=== PATIENT | female | born 1960 | race African-American/Black ===

== ENCOUNTER 2020-09-23 07:01 | Emergency (ER) | payer OTHER ==
[~2020-09-23] VITALS: Ht 170.2 cm; Wt 79.0 kg
[2020-09-23 09:07] VITALS: BP 185/97
== END 2020-09-23 09:09 | disposition home or self-care (01) ==
LOC: ER 07:35
DX: J45.909 Unspecified asthma, uncomplicated (principal); Z85.528 Personal history of other malignant neoplasm of kidney; Z98.890 Other specified postprocedural states
CPT/HCPCS: 71045; 93005; 99283

== ENCOUNTER 2021-07-12 21:14 | Emergency (ER) | payer OTHER ==
[~2021-07-12] VITALS: Ht 172.7 cm; Wt 75.0 kg
[2021-07-12] MEDS ORDERED: IPRATROPIUM BROMIDE (0.02%) 0.5MG/2.5ML NEB HHN STA (22:02)
[2021-07-12] MEDS ORDERED: METHYLPREDNISOLONE SOD SUCC 125 MG/2 ML VIAL IV STA (22:02)
[2021-07-12 23:05] LABS: BASOPHILS % 0.9 % (0.0-2.0); EOSINOPHILS % 8.8 % (0.0-5.0); HEMATOCRIT. 39.6 % (36.0-48.0); HEMOGLOBIN. 13.1 g/dL (12.0-16.0); LYMPHOCYTES % 19.8 % (20.0-50.0); MEAN CORPUSCULAR HEMOGLOBIN 27.9 pg (28.0-32.0); MEAN CORPUSCULAR VOLUME 84.4 fL (81.0-99.0); MEAN PLATELET VOLUME 9.1 fl (7.4-10.4); MONOCYTES % 7.8 % (2.0-8.0); NEUTROPHILS % 62.7 % (40.0-76.0); PLATELET 264 x1000/uL (130-400); RED BLOOD CELL COUNT 4.69 mill/uL (4.2-5.4); RED CELL DISTRIBUTION WIDTH 14.2 % (11.6-14.6)
[2021-07-12 23:13] LABS: CHLORIDE 109 mEq/L (98-107)
[2021-07-12] MEDS: ALBUTEROL (0.083%) 2.5MG/3ML NEB HHN SCH ×2 (23:26→23:55)
[2021-07-13] MEDS ORDERED: ALBU05 NEB (00:31)
[2021-07-13] MEDS ORDERED: ALBU6.7H15 INH (00:31)
[2021-07-13] MEDS ORDERED: PRED10TA MT (00:31)
[2021-07-13 00:45] VITALS: BP 123/85
== END 2021-07-13 00:45 | disposition home or self-care (01) ==
LOC: ER 21:14
DX: J45.901 Unspecified asthma with (acute) exacerbation (principal); I10 Essential (primary) hypertension
CPT/HCPCS: 36415; 71045; 80053; 85025; 85610; 94640; 96374; 99284; J2930; Z7610

== ENCOUNTER 2021-08-09 20:20 | Inpatient (IN) | payer OTHER ==
[~2021-08-09] VITALS: Ht 167.6 cm; Wt 65.8 kg
[~2021-08-09 20:20] MED LIST: ALBU05 NEB; ALBU6.7H15 INH; PRED10TA MT
[2021-08-09] MEDS ORDERED: METHYLPREDNISOLONE SOD SUCC 125 MG/2 ML VIAL IV STA (20:59)
[2021-08-09] MEDS ORDERED: IPRATROPIUM BROMIDE (0.02%) 0.5MG/2.5ML NEB HHN STA (20:59)
[2021-08-09] MEDS ORDERED: ALBUTEROL (0.083%) 2.5MG/3ML NEB HHN STA (20:59)
[2021-08-09] MEDS ORDERED: ASPIRIN 81MG TABLET PO ONE (21:00)
[2021-08-09 21:52] LABS: EOSINOPHILS % 5.5 % (0.0-5.0); HEMATOCRIT. 39.9 % (36.0-48.0); HEMOGLOBIN. 12.4 g/dL (12.0-16.0); LYMPHOCYTES % 14.7 % (20.0-50.0); MEAN CORPUSCULAR HEMOGLOBIN 26.7 pg (28.0-32.0); MEAN CORPUSCULAR VOLUME 86.1 fL (81.0-99.0); MEAN PLATELET VOLUME 9.9 fl (7.4-10.4); NEUTROPHILS % 71.8 % (40.0-76.0); PLATELET 249 x1000/uL (130-400); RED BLOOD CELL COUNT 4.64 mill/uL (4.2-5.4); RED CELL DISTRIBUTION WIDTH 14.9 % (11.6-14.6)
[2021-08-09 21:56] LABS: CHLORIDE 115 mEq/L (98-107)
[2021-08-09] MEDS ORDERED: POTASSIUM CHLORIDE 20MEQ TABLET SR PO ONE (22:45)
[2021-08-10] MEDS ORDERED: ACETAMINOPHEN 325MG TABLET PO PRN (04:30)
[2021-08-10] MEDS ORDERED: GUAIFENESIN 200MG/10ML SUGAR FREE UDC PO PRN (04:30)
[2021-08-10] MEDS: ENOXAPARIN 40MG/0.4ML SYR SUBCUT SCH (04:30)
[2021-08-10] MEDS ORDERED: IPRATROPIUM/ALBUTEROL 0.5-3(2.5)MG/3ML NEB HHN PRN (04:30)
[2021-08-10] MEDS: METHYLPREDNISOLONE SOD SUCC 125 MG/2 ML VIAL IV SCH ×2 (04:30→12:07)
[2021-08-10] MEDS ORDERED: DOCUSATE SODIUM 100MG CAPSULE PO PRN (04:30)
[2021-08-10] MEDS ORDERED: MAGNESIUM/ALUMINUM HYDROXIDE/SIMETHICONE 30ML UDC PO PRN (04:30)
[2021-08-10] MEDS ORDERED: CLONIDINE 0.1MG TABLET PO PRN (04:30)
[2021-08-10] MEDS ORDERED: HYDROCODONE/ACETAMINOPHEN 5/325MG TABLET PO PRN (04:30)
[2021-08-10] MEDS ORDERED: ONDANSETRON HCL 4MG/2ML INJ IV PRN (04:30)
[2021-08-10] MEDS ORDERED: NALOXONE HCL 0.4 MG/ML 1ML VIAL IV PRN (04:45)
[2021-08-10] MEDS ORDERED: KCL 10MEQ/50ML PREMIX 50 ML IV SCH (06:00)
[2021-08-10] MEDS: LEVOFLOXACIN 500MG PREMIX 100 ML IV SCH (06:36)
[2021-08-10] MEDS: IPRATROPIUM/ALBUTEROL 0.5-3(2.5)MG/3ML NEB HHN SCH ×3 (08:33→20:50)
[2021-08-10] MEDS: AMLODIPINE 10MG TABLET PO SCH (09:16)
[2021-08-10 16:30] VITALS: BP 138/65
[2021-08-10] MEDS ORDERED: MONT10TA21 PO (19:14)
[2021-08-10] MEDS ORDERED: AMLO2.5T2 PO (19:14)
[2021-08-10 20:00] VITALS: BP 123/69
[2021-08-11] VITALS: BP 105/78
[2021-08-11] MEDS: IPRATROPIUM/ALBUTEROL 0.5-3(2.5)MG/3ML NEB HHN SCH ×3 (00:41→14:50)
[2021-08-11] MEDS: METHYLPREDNISOLONE SOD SUCC 125 MG/2 ML VIAL IV SCH ×3 (00:55→12:02)
[2021-08-11 04:00] VITALS: BP 102/60
[2021-08-11] MEDS: ENOXAPARIN 40MG/0.4ML SYR SUBCUT SCH (04:30)
[2021-08-11] MEDS: LEVOFLOXACIN 500MG PREMIX 100 ML IV SCH (05:06)
[2021-08-11 08:00] VITALS: BP 112/50
[2021-08-11 08:47] LABS: CHLORIDE 107 mEq/L (98-107); HEMATOCRIT. 39.1 % (36.0-48.0); HEMOGLOBIN. 12.5 g/dL (12.0-16.0); MEAN CORPUSCULAR HEMOGLOBIN 27.4 pg (28.0-32.0); MEAN CORPUSCULAR VOLUME 85.8 fL (81.0-99.0); MEAN PLATELET VOLUME 10.5 fl (7.4-10.4); PLATELET 273 x1000/uL (130-400); RED BLOOD CELL COUNT 4.56 mill/uL (4.2-5.4)
[2021-08-11] MEDS: AMLODIPINE 10MG TABLET PO SCH (09:00)
[2021-08-11 12:00] VITALS: BP 118/60
[2021-08-11 15:41] VITALS: BP 124/68
[2021-08-11 16:00] VITALS: BP 124/68
[2021-08-11 22:13] LABS: PLATELET ESTIMATE NORMAL
== END 2021-08-11 17:55 | disposition home or self-care (01) | DRG 140 ==
LOC: ER 20:20 → MICUSO 08-10 → 8WST 08-10 17:07
PROVIDERS: ADMIT Hospitalist; ATTEND Hospitalist
DX: J44.1 Chronic obstructive pulmonary disease with (acute) exacerbation (principal); F17.200 Nicotine dependence, unspecified, uncomplicated; Z20.822 Contact with and (suspected) exposure to COVID-19; G80.9 Cerebral palsy, unspecified; I10 Essential (primary) hypertension; Z79.899 Other long term (current) drug therapy
CPT/HCPCS: 36415; 71045; 80053; 83880; 84484; 85025; 87426; 93005; 93970; 94640; 94644; 99285; J1650; J1956; J2930; J3480

== ENCOUNTER 2021-12-27 16:16 | Emergency (ER) | payer OTHER ==
[~2021-12-27] VITALS: Ht 157.5 cm; Wt 65.0 kg
[~2021-12-27 16:16] MED LIST changes: +AMLO2.5T2 PO; +MONT10TA21 PO
[2021-12-27] MEDS ORDERED: ALBUTEROL (0.083%) 2.5MG/3ML NEB HHN STA (16:48)
[2021-12-27] MEDS ORDERED: PREDNISONE 20MG TABLET PO STA (16:48)
[2021-12-27] MEDS ORDERED: IPRATROPIUM BROMIDE (0.02%) 0.5MG/2.5ML NEB HHN STA (16:48)
[2021-12-27 17:32] LABS: BASOPHILS % 1.2 % (0.0-2.0); EOSINOPHILS % 14.1 % (0.0-5.0); HEMATOCRIT. 41.3 % (36.0-48.0); HEMOGLOBIN. 13.3 g/dL (12.0-16.0); LYMPHOCYTES % 33.1 % (20.0-50.0); MEAN CORPUSCULAR HEMOGLOBIN 27.4 pg (28.0-32.0); MEAN CORPUSCULAR VOLUME 85.2 fL (81.0-99.0); MEAN PLATELET VOLUME 9.2 fl (7.4-10.4); MONOCYTES % 8.5 % (2.0-8.0); NEUTROPHILS % 43.1 % (40.0-76.0); PLATELET 234 x1000/uL (130-400); RED BLOOD CELL COUNT 4.84 mill/uL (4.2-5.4); RED CELL DISTRIBUTION WIDTH 15.1 % (11.6-14.6)
[2021-12-27 17:35] LABS: CHLORIDE 108 mEq/L (98-107)
[2021-12-27] MEDS ORDERED: ALBUTEROL (0.5%) 2.5MG/0.5ML NEB HHN STA (20:42)
[2021-12-27] MEDS ORDERED: ALBU05 NEB (20:52)
[2021-12-27] MEDS ORDERED: FLUT1DIS3 INH (20:52)
[2021-12-27] MEDS ORDERED: P50 PO (20:53)
[2021-12-27] MEDS ORDERED: ALBUTEROL (0.5%) 2.5MG/0.5ML NEB HHN ONE (21:17)
[2021-12-27] MEDS ORDERED: IPRATROPIUM/ALBUTEROL 0.5-3(2.5)MG/3ML NEB ONE (21:17)
[2021-12-27 23:00] VITALS: BP 145/82
== END 2021-12-27 23:18 | disposition home or self-care (01) ==
LOC: ER 16:16
DX: J44.1 Chronic obstructive pulmonary disease with (acute) exacerbation (principal); I10 Essential (primary) hypertension; G80.9 Cerebral palsy, unspecified
CPT/HCPCS: 36415; 71045; 80048; 85025; 94640; 99285; J7512; Z7610

== ENCOUNTER 2022-04-10 10:27 | Inpatient (IN) | payer OTHER ==
[~2022-04-10] VITALS: Ht 162.6 cm; Wt 59.9 kg
[~2022-04-10 10:27] MED LIST changes: +FLUT1DIS3 INH; +P50 PO
[2022-04-10] MEDS ORDERED: IPRATROPIUM BROMIDE (0.02%) 0.5MG/2.5ML NEB HHN STA (10:39)
[2022-04-10] MEDS ORDERED: ALBUTEROL (0.083%) 2.5MG/3ML NEB HHN STA (10:39)
[2022-04-10 11:10] LABS: BASOPHILS % 1.1 % (0.0-2.0); EOSINOPHILS % 11.3 % (0.0-5.0); HEMATOCRIT. 40.9 % (36.0-48.0); HEMOGLOBIN. 13.2 g/dL (12.0-16.0); LYMPHOCYTES % 40.9 % (20.0-50.0); MEAN CORPUSCULAR HEMOGLOBIN 27.2 pg (28.0-32.0); MEAN CORPUSCULAR VOLUME 84.3 fL (81.0-99.0); MONOCYTES % 8.6 % (2.0-8.0); NEUTROPHILS % 38.1 % (40.0-76.0); PLATELET 228 x1000/uL (130-400); RED BLOOD CELL COUNT 4.86 mill/uL (4.2-5.4)
[2022-04-10 11:22] LABS: CHLORIDE 108 mEq/L (98-107)
[2022-04-10] MEDS ORDERED: METHYLPREDNISOLONE SOD SUCC 125 MG/2 ML VIAL IV ONE (11:45)
[2022-04-10] MEDS ORDERED: IPRATROPIUM/ALBUTEROL 0.5-3(2.5)MG/3ML NEB HHN PRN (16:00)
[2022-04-10 16:30] VITALS: BP 143/77
[2022-04-10] MEDS ORDERED: PREDNISONE 20MG TABLET PO SCH (17:00)
[2022-04-10] MEDS ORDERED: MONTELUKAST SODIUM 10MG TABLET PO SCH (17:00)
[2022-04-10] MEDS ORDERED: *PATIENT'S OWN MEDICATION STORAGE XX SCH (17:45)
[2022-04-10 17:56] VITALS: BP 143/77
[2022-04-10] MEDS ORDERED: HYDROCODONE/ACETAMINOPHEN 5/325MG TABLET PO PRN (19:30)
[2022-04-10] MEDS ORDERED: ACETAMINOPHEN 325MG TABLET PO PRN (19:30)
[2022-04-10] MEDS ORDERED: CLONIDINE 0.2MG TABLET PO PRN (19:30)
[2022-04-10] MEDS ORDERED: ZOLPIDEM TARTRATE 5MG TABLET PO PRN (19:30)
[2022-04-10 20:00] VITALS: BP 145/70
[2022-04-10 21:01] LABS: BASOPHILS % 0.3 % (0.0-2.0); EOSINOPHILS % 0.1 % (0.0-5.0); HEMATOCRIT. 39.1 % (36.0-48.0); HEMOGLOBIN. 12.5 g/dL (12.0-16.0); LYMPHOCYTES % 10.7 % (20.0-50.0); MEAN CORPUSCULAR HEMOGLOBIN 27.1 pg (28.0-32.0); MEAN CORPUSCULAR VOLUME 85.3 fL (81.0-99.0); MEAN PLATELET VOLUME 10.2 fl (7.4-10.4); MONOCYTES % 0.9 % (2.0-8.0); PLATELET 229 x1000/uL (130-400); RED BLOOD CELL COUNT 4.59 mill/uL (4.2-5.4); RED CELL DISTRIBUTION WIDTH 14.1 % (11.6-14.6)
[2022-04-10 21:31] LABS: CHLORIDE 107 mEq/L (98-107)
[2022-04-10] MEDS: IPRATROPIUM/ALBUTEROL 0.5-3(2.5)MG/3ML NEB HHN SCH (21:58)
[2022-04-10] MEDS: METHYLPREDNISOLONE SOD SUCC 125 MG/2 ML VIAL IV SCH (23:43)
[2022-04-11] VITALS: BP 140/65
[2022-04-11 04:00] VITALS: BP 115/71
[2022-04-11] MEDS: METHYLPREDNISOLONE SOD SUCC 125 MG/2 ML VIAL IV SCH (05:19)
[2022-04-11 08:00] VITALS: BP 155/73
[2022-04-11] MEDS: IPRATROPIUM/ALBUTEROL 0.5-3(2.5)MG/3ML NEB HHN SCH ×2 (08:54→13:52)
[2022-04-11] MEDS ORDERED: LORATADINE 10MG TABLET PO SCH (09:00)
[2022-04-11] MEDS ORDERED: ASPIRIN 81MG TABLET PO SCH (09:00)
[2022-04-11] MEDS ORDERED: LEVOFLOXACIN 500MG TABLET PO SCH (11:00)
[2022-04-11 11:05] LABS: T4 FREE 1.17 ng/dL (0.76-1.46)
[2022-04-11 12:24] VITALS: BP 133/69
== END 2022-04-11 15:25 | disposition home or self-care (01) | DRG 133 ==
LOC: ER 10:59 → 8WST 14:57 → ENRESERV 15:38
PROVIDERS: ADMIT Internal Medicine; ATTEND Internal Medicine
DX: J96.01 Acute respiratory failure with hypoxia (principal); D72.10 Eosinophilia, unspecified; R65.10 Systemic inflammatory response syndrome (SIRS) of non-infectious origin without acute organ dysfunction; I11.0 Hypertensive heart disease with heart failure; J44.1 Chronic obstructive pulmonary disease with (acute) exacerbation; J45.901 Unspecified asthma with (acute) exacerbation; I50.9 Heart failure, unspecified; Z20.822 Contact with and (suspected) exposure to COVID-19; I25.10 Atherosclerotic heart disease of native coronary artery without angina pectoris; D64.9 Anemia, unspecified; Z85.528 Personal history of other malignant neoplasm of kidney
CPT/HCPCS: 36415; 71045; 76770; 80048; 80053; 80061; 83036; 83605; 83880; 84439; 84443; 84484; 85025; 85379; 87426; 93005; 93306; 94640; 99285; C9803; J2930; J7512

== ENCOUNTER 2022-06-01 20:56 | Inpatient (IN) | payer OTHER ==
[~2022-06-01] VITALS: Ht 162.6 cm; Wt 64.0 kg
[2022-06-01 21:38] LABS: BASOPHILS % 1.3 % (0.0-2.0); EOSINOPHILS % 8.5 % (0.0-5.0); HEMATOCRIT. 39.6 % (36.0-48.0); HEMOGLOBIN. 12.8 g/dL (12.0-16.0); LYMPHOCYTES % 29.4 % (20.0-50.0); MEAN CORPUSCULAR HEMOGLOBIN 27.6 pg (28.0-32.0); MEAN CORPUSCULAR VOLUME 85.5 fL (81.0-99.0); MEAN PLATELET VOLUME 9.1 fl (7.4-10.4); MONOCYTES % 8.1 % (2.0-8.0); NEUTROPHILS % 52.7 % (40.0-76.0); PLATELET 238 x1000/uL (130-400); RED BLOOD CELL COUNT 4.63 mill/uL (4.2-5.4)
[2022-06-01 21:48] LABS: CHLORIDE 107 mEq/L (98-107)
[2022-06-02] MEDS ORDERED: ALBUTEROL (0.083%) 2.5MG/3ML NEB HHN STA (00:01)
[2022-06-02] MEDS ORDERED: METHYLPREDNISOLONE SOD SUCC 125 MG/2 ML VIAL IV STA (00:01)
[2022-06-02] MEDS ORDERED: IPRATROPIUM BROMIDE (0.02%) 0.5MG/2.5ML NEB HHN STA (00:01)
[2022-06-02] MEDS ORDERED: ASPIRIN 81MG TABLET PO ONE (00:15)
[2022-06-02] MEDS ORDERED: METHYLPREDNISOLONE SOD SUCC 125 MG/2 ML VIAL IV NR (03:45)
[2022-06-02] MEDS ORDERED: ASPIRIN 81MG TABLET PO NR (03:45)
[2022-06-02] MEDS ORDERED: POTASSIUM CHLORIDE 20MEQ TABLET SR PO NR ×2 (07:45→14:00)
[2022-06-02 09:38] LABS: CREATINE KINASE 41 IU/L (26-192); CREATINE KINASE MB FRACTION < 1.0 ng/mL (0.5-3.6)
[2022-06-02 09:47] LABS: T4 FREE 1.38 ng/dL (0.76-1.46)
[2022-06-02] MEDS ORDERED: ONDANSETRON HCL 4MG/2ML INJ IV PRN (10:00)
[2022-06-02] MEDS ORDERED: IPRATROPIUM/ALBUTEROL 0.5-3(2.5)MG/3ML NEB HHN SCH (10:00)
[2022-06-02] MEDS ORDERED: ACETAMINOPHEN 650MG/20.3ML UDC PO PRN (10:00)
[2022-06-02] MEDS ORDERED: CLONIDINE 0.1MG TABLET PO PRN (10:00)
[2022-06-02] MEDS ORDERED: NALOXONE HCL 0.4MG/ML VIAL IV PRN (10:15)
[2022-06-02] MEDS ORDERED: IOHEXOL-350 100 ML BOTTLE ONE (11:33)
[2022-06-02] MEDS: MORPHINE SULFATE 2 MG/ML CPJ (NOT FOR IM USE) IV PRN (11:36)
[2022-06-02 12:00] VITALS: BP 159/90
[2022-06-02 12:30] VITALS: BP 159/90
[2022-06-02 16:00] VITALS: BP 164/83
[2022-06-02] MEDS ORDERED: ALBUTEROL 6.7GM HFA INHALER ORI PRN (18:30)
[2022-06-02] MEDS ORDERED: ALBUTEROL (0.083%) 2.5MG/3ML NEB HHN PRN (18:45)
[2022-06-02] MEDS: METHYLPREDNISOLONE SOD SUCC 40 MG/ML VIAL IV SCH (19:41)
[2022-06-02 20:00] VITALS: BP 138/88
[2022-06-02] MEDS: BUDESONIDE 0.5MG/2ML NEB HHN SCH (20:54)
[2022-06-02] MEDS: IPRATROPIUM/ALBUTEROL 0.5-3(2.5)MG/3ML NEB HHN SCH (20:54)
[2022-06-02 21:45] LABS: CLARITY URINE CLEAR (CLEAR); COLOR URINE YELLOW (YELLOW); KETONES URINE NEGATIVE (NEGATIVE); LEUKOCYTE ESTERASE URINE NEGATIVE (NEGATIVE); NITRITE URINE NEGATIVE (NEGATIVE); OCCULT BLOOD URINE 1+ (NEGATIVE); PROTEIN URINE NEGATIVE (NEGATIVE); SPECIFIC GRAVITY URINE 1.012 (1.005-1.030); UROBILINOGEN URINE 0.2 E.U./dL (0.2-1.0)
[2022-06-02 21:55] LABS: *AMPHETAMINES SCREEN URINE NEGATIVE (NEGATIVE); *BARBITURATES SCREEN URINE NEGATIVE (NEGATIVE); *BENZODIAZEPINES SCREEN URINE NEGATIVE (NEGATIVE); *COCAINE SCREEN URINE NEGATIVE (NEGATIVE); CANNABINOID URINE SCREEN NEGATIVE (NEGATIVE); METHADONE URINE SCREEN NEGATIVE (NEGATIVE); OPIATES URINE SCREEN NEGATIVE (NEGATIVE); PHENCYCLIDINE URINE SCREEN NEGATIVE (NEGATIVE)
[2022-06-02 23:27] LABS: CREATINE KINASE MB FRACTION 1.5 ng/mL (0.5-3.6)
[2022-06-03] VITALS: BP 112/62
[2022-06-03] MEDS: IPRATROPIUM/ALBUTEROL 0.5-3(2.5)MG/3ML NEB HHN SCH ×4 (01:20→21:21)
[2022-06-03 04:00] VITALS: BP 105/54
[2022-06-03] MEDS: METHYLPREDNISOLONE SOD SUCC 40 MG/ML VIAL IV SCH ×3 (05:26→23:41)
[2022-06-03] MEDS: BUDESONIDE 0.5MG/2ML NEB HHN SCH ×2 (07:39→15:18)
[2022-06-03 07:53] LABS: CHLORIDE 106 mEq/L (98-107)
[2022-06-03 08:00] VITALS: BP 167/78
[2022-06-03 08:09] LABS: CREATINE KINASE 42 IU/L (26-192); CREATINE KINASE MB FRACTION 1.8 ng/mL (0.5-3.6); HDL CHOLESTEROL 73 mg/dL (40-59); LDL CHOLESTEROL 93 mg/dL (5-100)
[2022-06-03 08:13] LABS: HEMATOCRIT. 39.3 % (36.0-48.0); HEMOGLOBIN. 12.6 g/dL (12.0-16.0); MEAN CORPUSCULAR HEMOGLOBIN 27.4 pg (28.0-32.0); MEAN CORPUSCULAR VOLUME 85.6 fL (81.0-99.0); PLATELET 257 x1000/uL (130-400); RED BLOOD CELL COUNT 4.59 mill/uL (4.2-5.4)
[2022-06-03] MEDS: ASPIRIN 81MG TABLET PO SCH (08:42)
[2022-06-03 12:00] VITALS: BP 109/56
[2022-06-03 14:14] LABS: PLATELET ESTIMATE NORMAL
[2022-06-03 16:00] VITALS: BP 99/51
[2022-06-03 20:00] VITALS: BP 111/59
[2022-06-03] MEDS: MORPHINE SULFATE 2 MG/ML CPJ (NOT FOR IM USE) IV PRN (23:46)
[2022-06-04] VITALS: BP 118/61
[2022-06-04] MEDS: IPRATROPIUM/ALBUTEROL 0.5-3(2.5)MG/3ML NEB HHN SCH ×6 (00:49→21:33)
[2022-06-04 04:00] VITALS: BP 108/45
[2022-06-04 08:00] VITALS: BP 130/74
[2022-06-04] MEDS: BUDESONIDE 0.5MG/2ML NEB HHN SCH ×2 (09:00→21:33)
[2022-06-04] MEDS: AZITHROMYCIN 500 MG TABLET PO SCH (09:04)
[2022-06-04] MEDS: ASPIRIN 81MG TABLET PO SCH (09:05)
[2022-06-04] MEDS ORDERED: IOHEXOL-350 100 ML BOTTLE ONE (09:28)
[2022-06-04] MEDS ORDERED: NITROGLYCERIN SPRAY/4.9GM CAN TL ONE (10:45)
[2022-06-04] MEDS ORDERED: FLUT1DIS3 INH (10:54)
[2022-06-04] MEDS ORDERED: ALBU6.7H15 INH (10:54)
[2022-06-04] MEDS ORDERED: MONT10TA21 PO (10:54)
[2022-06-04] MEDS ORDERED: ALBU05 NEB (10:54)
[2022-06-04] MEDS ORDERED: PRED10TA MT (10:54)
[2022-06-04] MEDS: METHYLPREDNISOLONE SOD SUCC 40 MG/ML VIAL IV SCH ×2 (11:56→23:39)
[2022-06-04 12:00] VITALS: BP 133/66
[2022-06-04 16:00] VITALS: BP 139/70
[2022-06-04] MEDS: MONTELUKAST SODIUM 10MG TABLET PO SCH (16:42)
[2022-06-04 20:46] VITALS: BP 116/65
[2022-06-05] VITALS: BP 153/75
[2022-06-05] MEDS: IPRATROPIUM/ALBUTEROL 0.5-3(2.5)MG/3ML NEB HHN SCH ×5 (01:00→23:47)
[2022-06-05 04:00] VITALS: BP 110/66
[2022-06-05 08:00] VITALS: BP 143/74
[2022-06-05] MEDS: AZITHROMYCIN 500 MG TABLET PO SCH (08:21)
[2022-06-05] MEDS: ASPIRIN 81MG TABLET PO SCH (08:21)
[2022-06-05] MEDS: BUDESONIDE 0.5MG/2ML NEB HHN SCH (08:39)
[2022-06-05 11:57] VITALS: BP 136/71
[2022-06-05] MEDS ORDERED: VERAPAMIL HCL 2.5 MG/1 ML 2ML VIAL IV ONE (12:09)
[2022-06-05] MEDS ORDERED: DIPHENHYDRAMINE 50MG/ML VIAL ONE (12:09)
[2022-06-05] MEDS ORDERED: HEPARIN 1000 UNITS/ML 10ML ONE (12:09)
[2022-06-05] MEDS ORDERED: FENTANYL CITRATE/PF 50MCG/ML 2ML VIAL ONE (12:10)
[2022-06-05] MEDS ORDERED: LIDOCAINE HCL 1% 50ML VIAL (10MG/ML) ONE (12:10)
[2022-06-05] MEDS ORDERED: MIDAZOLAM HCL 2 MG/2 ML VIAL ONE (12:10)
[2022-06-05] MEDS: METHYLPREDNISOLONE SOD SUCC 40 MG/ML VIAL IV SCH ×2 (12:30→17:10)
[2022-06-05] MEDS ORDERED: ATROPINE SULFATE 1MG/10ML SYR IV PRN (13:45)
[2022-06-05 17:05] VITALS: BP 131/64
[2022-06-05] MEDS: MONTELUKAST SODIUM 10MG TABLET PO SCH (17:09)
[2022-06-05 20:00] VITALS: BP 115/65
[2022-06-06] VITALS: BP 119/70
[2022-06-06] MEDS: METHYLPREDNISOLONE SOD SUCC 40 MG/ML VIAL IV SCH ×2 (00:17→12:34)
[2022-06-06 04:00] VITALS: BP 108/51
[2022-06-06] MEDS: IPRATROPIUM/ALBUTEROL 0.5-3(2.5)MG/3ML NEB HHN SCH ×3 (04:24→12:00)
[2022-06-06 06:10] LABS: CHLORIDE 105 mEq/L (98-107)
[2022-06-06 06:35] LABS: HEMATOCRIT. 35.9 % (36.0-48.0); HEMOGLOBIN. 11.7 g/dL (12.0-16.0); MEAN CORPUSCULAR HEMOGLOBIN 27.9 pg (28.0-32.0); MEAN PLATELET VOLUME 10.3 fl (7.4-10.4); PLATELET 220 x1000/uL (130-400); RED BLOOD CELL COUNT 4.18 mill/uL (4.2-5.4)
[2022-06-06 08:00] VITALS: BP 133/73
[2022-06-06] MEDS: ASPIRIN 81MG TABLET PO SCH (08:06)
[2022-06-06] MEDS: AZITHROMYCIN 500 MG TABLET PO SCH (08:06)
[2022-06-06 08:28] LABS: PLATELET ESTIMATE NORMAL
[2022-06-06 11:10] VITALS: BP 148/79
[2022-06-06 12:00] VITALS: BP_SYST 100; BP_DIAS 54; BP_DIAS 56
[2022-06-06 15:45] VITALS: BP 148/79
[2022-06-06] MEDS: MONTELUKAST SODIUM 10MG TABLET PO SCH (16:28)
== END 2022-06-06 16:45 | disposition home or self-care (01) | DRG 191 ==
LOC: ER 20:56 → 7WST 06-02 00:43
PROVIDERS: ADMIT Family Medicine; ATTEND Family Medicine
PROC: 4A023N7 Measurement of Cardiac Sampling and Pressure, Left Heart, Percutaneous Approach (ICD-10-PCS; principal; 2022-06-05)
PROC: B211YZZ Fluoroscopy of Multiple Coronary Arteries using Other Contrast (ICD-10-PCS; 2022-06-05)
DX: I25.110 Atherosclerotic heart disease of native coronary artery with unstable angina pectoris (principal); J44.1 Chronic obstructive pulmonary disease with (acute) exacerbation; E78.5 Hyperlipidemia, unspecified; Z20.822 Contact with and (suspected) exposure to COVID-19; I10 Essential (primary) hypertension; F17.200 Nicotine dependence, unspecified, uncomplicated; Z90.49 Acquired absence of other specified parts of digestive tract; Z79.899 Other long term (current) drug therapy; Z85.528 Personal history of other malignant neoplasm of kidney; J45.901 Unspecified asthma with (acute) exacerbation
CPT/HCPCS: 36415; 71045; 71275; 75571; 76700; 80048; 80053; 80061; 80305; 81003; 82550; 82553; 83036; 83880; 84439; 84443; 84484; 85025; 85379; 87426; 93005; 93306; 93458; 93970; 94640; 94664; 99291; C1769; C1887; C1893; C1894; C9803; J1200; J1644; J2250; J2270; J2405; J2920; J2930; J3010; J3490; J7626; Q9967

== ENCOUNTER 2022-12-16 10:03 | Emergency (ER) | payer OTHER ==
[~2022-12-16] VITALS: Ht 160 cm; Wt 61.0 kg
[~2022-12-16 10:03] MED LIST changes: +MONT-46 PO; -MONT10TA21 PO
[2022-12-16] MEDS ORDERED: METHYLPREDNISOLONE SOD SUCC 125 MG/2 ML VIAL IV STA (10:40)
[2022-12-16] MEDS ORDERED: IPRATROPIUM BROMIDE (0.02%) 0.5MG/2.5ML NEB HHN STA (10:40)
[2022-12-16] MEDS ORDERED: ALBUTEROL (0.083%) 2.5MG/3ML NEB HHN STA (10:40)
[2022-12-16] MEDS ORDERED: ASPIRIN 325MG TABLET PO ONE (10:45)
[2022-12-16] MEDS ORDERED: MORPHINE SULFATE 2 MG/ML CPJ (NOT FOR IM USE) IV ONE (10:45)
[2022-12-16 11:53] LABS: BASOPHILS % 1.1 % (0.0-2.0); EOSINOPHILS % 4.1 % (0.0-5.0); HEMATOCRIT. 40.8 % (36.0-48.0); LYMPHOCYTES % 34.6 % (20.0-50.0); MEAN CORPUSCULAR VOLUME 84.8 fL (81.0-99.0); MEAN PLATELET VOLUME 10.4 fl (7.4-10.4); MONOCYTES % 11.2 % (2.0-8.0); PLATELET 249 x1000/uL (130-400); RED BLOOD CELL COUNT 4.81 mill/uL (4.2-5.4); RED CELL DISTRIBUTION WIDTH 14.2 % (11.6-14.6)
[2022-12-16 11:58] LABS: CHLORIDE 111 mEq/L (98-107)
[2022-12-16 12:09] VITALS: BP 131/63
[2022-12-16] MEDS ORDERED: ONDANSETRON HCL 4MG/2ML INJ IV ONE (12:15)
[2022-12-16] MEDS ORDERED: P20 MT (15:05)
[2022-12-16] MEDS ORDERED: ALBU2.5V13 NEB (15:11)
== END 2022-12-16 16:00 | disposition home or self-care (01) ==
LOC: ER 10:03
DX: R07.2 Precordial pain (principal); J44.9 Chronic obstructive pulmonary disease, unspecified; M25.552 Pain in left hip; M25.551 Pain in right hip; I10 Essential (primary) hypertension; G80.9 Cerebral palsy, unspecified; Z85.528 Personal history of other malignant neoplasm of kidney; Z98.890 Other specified postprocedural states; Z90.49 Acquired absence of other specified parts of digestive tract
CPT/HCPCS: 36415; 71045; 80053; 83880; 84484; 85025; 93005; 94640; 96374; 96375; 99285; J2270; J2405; J2930; Z7610